=== PATIENT | male | born 1945 | race Caucasian/White ===

== ENCOUNTER → 2020-07-15 | Outpatient (CLI) | payer MEDICARE, OTHER | LOC: SLEEP 14:49 | DX: Z00.00 Encounter for general adult medical examination without abnormal findings (principal); J30.9 Allergic rhinitis, unspecified; M19.90 Unspecified osteoarthritis, unspecified site; K21.9 Gastro-esophageal reflux disease without esophagitis; I10 Essential (primary) hypertension; Z86.69 Personal history of other diseases of the nervous system and sense organs; N42.9 Disorder of prostate, unspecified | CPT/HCPCS: 95811 ==